=== PATIENT | male | born 1930 | race Caucasian/White ===

== ENCOUNTER → 2017-02-09 | Outpatient (CLI) | payer OTHER | LOC: NM 02-06 13:00 | DX: I20.9 Angina pectoris, unspecified (principal); I25.10 Atherosclerotic heart disease of native coronary artery without angina pectoris; J18.1 Lobar pneumonia, unspecified organism; T82.855A Stenosis of coronary artery stent, initial encounter | CPT/HCPCS: 71250; 78452; 93017; A9502; J2785 ==

== ENCOUNTER → 2020-10-12 | Outpatient (CLI) | payer OTHER | LOC: KOH-I 12:58 | DX: R91.8 Other nonspecific abnormal finding of lung field (principal); I65.23 Occlusion and stenosis of bilateral carotid arteries | CPT/HCPCS: 71250; 93880 ==